=== PATIENT | male | born 1960 | race Caucasian/White ===

== ENCOUNTER → 2024-05-24 14:19 | Outpatient (REF) | payer MEDICARE, BC, SELFPAY | LOC: RAD 14:19 | PROVIDERS: ATTENDING PHYSICIAN Internal Medicine; FAMILY PHYSICIAN Internal Medicine | DX: G89.29 Other chronic pain (principal); M25.60 Stiffness of unspecified joint, not elsewhere classified; M54.2 Cervicalgia; M54.50 Low back pain, unspecified; M54.6 Pain in thoracic spine | CPT/HCPCS: 72052; 72072; 72110; 72190 ==

== ENCOUNTER 2025-05-11 06:25 | Day surgery (SDC) | payer MEDICARE, BC, SELFPAY | END 2025-05-11 14:47 | disposition home or self-care (01) | LOC: GI 06:25 | PROVIDERS: ATTENDING PHYSICIAN Internal Medicine Gastroenterology | DX: Z12.11 Encounter for screening for malignant neoplasm of colon (principal); Q43.8 Other specified congenital malformations of intestine; K64.8 Other hemorrhoids; K63.89 Other specified diseases of intestine; Z86.0100 Personal history of colon polyps, unspecified | CPT/HCPCS: G0105 ==

== ENCOUNTER → 2025-09-26 12:01 | Outpatient (REF) | payer MEDICARE, BC, SELFPAY | LOC: RAD 12:01 | PROVIDERS: ATTENDING PHYSICIAN Internal Medicine Gastroenterology; FAMILY PHYSICIAN Internal Medicine | DX: K59.01 Slow transit constipation (principal) | CPT/HCPCS: 74018 ==